=== PATIENT | male | born 1955 | race American Indian/Alaskan Native ===

== ENCOUNTER 2019-01-25 08:24 | Observation (INO) | payer SELFPAY ==
[2019-01-25] MEDS ORDERED: ASPIRIN 325 MG TAB PO ONE (08:37)
--- NOTE | 2019-01-25 09:33 | XRay Report ---
CHEST 1 VIEW INDICATION: Chest Pain. COMPARISON: None FINDINGS: Support devices: None. Heart: Within normal limits. Lungs/Pleura: No acute air space or interstitial disease. Additional findings: None. IMPRESSION: Normal AP chest. Signer Name: Ryan Cee Jr, MD Signed: 01/25/2019 9:29 AM Workstation Name: [id number]
[2019-01-25 09:42] LABS: Basophils % (Auto) 0.6 % (0.0-1.8); Eosinophils # (Auto) 0.1 K/mm3 (0.0-0.4); Hematocrit 44.3 % (35.5-45.6); Lymphocytes # (Auto) 2.2 K/mm3 (1.2-5.4); Lymphocytes % (Auto) 45.3 % (13.4-35.0); Mean Corpuscular HGB Conc 34 % (32-34); Mean Corpuscular Volume 88 fl (84-94); Monocytes # (Auto) 0.6 K/mm3 (0.0-0.8); Monocytes % (Auto) 11.7 % (0.0-7.3); Platelet Count 245 K/mm3 (140-440); Red Blood Count 5.05 M/mm3 (3.65-5.03); Red Cell Distribution Width 14.4 % (13.2-15.2)
[2019-01-25 10:03] LABS: BUN/Creatinine Ratio 7; Blood Urea Nitrogen 10 mg/dL (9-20); Calcium 9.3 mg/dL (8.4-10.2); Hemolysis Index 60
[2019-01-25] MEDS ORDERED: ALBUTEROL 2.5 MG/3 ML NEBU IH ONE (10:47)
[2019-01-25] MEDS ORDERED: IPRATROPIUM 0.02% NEBU 2.5 ML IH ONE (10:47)
[2019-01-25] MEDS ORDERED: predniSONE 20 MG TAB PO ONE (10:48)
--- NOTE | 2019-01-25 11:02 | Emergency Department Report ---
HPI - General Chief Complaint: Dyspnea/Respdistress Time Seen by Provider: 01/25/19 10:37 - HPI HPI: 63-year-old male presents to the emergency department with complaint of a few days of some generalized chest tightness and shortness of br eath. The symptoms worsen with exertion. The patient has a past medical history of hypertension, coronary artery disease with cardiac stents and a history of previous PE. The patient says he was found to have DVT and PE about 6 months ago at the [facility]. He was on Xarelto but stopped the blood thinning medication a few months ago because "I was feeling better." He has a petrol tanker driver. Denies any current lower extremity swelling. He does not have a primary care physician. He is an occasional marijuana smoker but denies any tobacco use. No recent travel or sick contacts at home. ED Past Medical Hx - Past Medical History Previous Medical History?: Yes Hx Hypertension: Yes - Surgical History Past Surgical History?: Yes Additional Surgical History: stent placement - Social History Smoking Status: Never Smoker Substance Use Type: None ED Review of Systems ROS: Stated complaint: ARPITA/TIGHTNESS IN CHEST Other details as noted in HPI Comment: All other systems reviewed and negative Constitutional: denies: chills, fever Eyes: denies: eye pain, vision change ENT: denies: ear pain, throat pain Respiratory: see HPI, shortness of breath, SOB with exertion, wheezing Cardiovascular: chest pain (tightness). denies: edema Gastrointestinal: denies: abdominal pain, vomiting Genitourinary: denies: dysuria, discharge Musculoskeletal: denies: back pain, arthralgia Skin: denies: rash, lesions Neurological: denies: headache, weakness Physical Exam - Physical Exam Vital Signs: Vital Signs 01/25/19 08:35 Temperature 98.0 F Pulse Rate 81 Respiratory 18 Rate Blood Pressure 148/101 O2 Sat by Pulse 98 Oximetry Physical Exam: GENERAL: The patient is well-developed well-nourished. HENT: Normocephalic. Atraumatic. Patient has moist mucous membranes. EYES: Extraocular motions are intact. Pupils equal reactive to light bilaterally. NECK: Supple. Trachea is midline. CHEST/LUNGS: Mild expiratory wheezing. No tachypnea or accessory muscle use. There is no respiratory distress noted. HEART/CARDIOVASCULAR: Regular. There is no tachycardia. There is no murmur. ABDOMEN: Abdomen is soft, nontender. Patient has normal bowel sounds. Obese habitus. SKIN: Skin is warm and dry. NEURO: The patient is awake, alert, and oriented. The patient is cooperative. The patient has no focal neurologic deficits. Normal speech. MUSCULOSKELETAL: There is no tenderness or deformity. There is no evidence of acute injury. ED Course Vital Signs 01/25/19 08:35 Temperature 98.0 F Pulse Rate 81 Respiratory 18 Rate Blood Pressure 148/101 O2 Sat by Pulse 98 Oximetry ED Medical Decision Making - Lab Data Result diagrams: 01/25/19 09:10 01/25/19 09:10 - EKG Data -: EKG Interpreted by Me EKG shows normal: sinus rhythm, axis, intervals, QRS complexes (q waves to the septal leads) Rate: normal - EKG Data When compared to previous EKG there are: previous EKG unavailable Interpretation: other (sinus, q waves to the septal leads, no STEMI) - Radiology Data Radiology results: report reviewed, image reviewed interpreted by me: Chest x-ray does not show any acute process. There are no pleural effusions, obvious pneumonia and there is no pneumothorax. CTA CHEST WITH CONTRAST INDICATION : SOB, elevated dimer, hx of PE. TECHNIQUE: Axial imaging performed through the chest, with contrast bolus timing set to maximize opacification of the pulmonary arteries. Sagittal and coronal reformatted images. 3-plane MIP reformatted images were obtained. All CT scans at this location are performed using CT dose reduction for ALARA by means of automated exposure control. 100 mL of intravenous contrast administered. COMPARISON: None FINDINGS: Bolus: Contrast bolus timing is adequate. PTE: A linear nonocclusive filling defect is identified in a second order pulmonary artery leading to the posterior right upper lobe which is best demonstrated on image 37, series 2. A small nonocclusive filling defect is also identified and a third or fourth order pulmonary artery leading to the posterior right lower lobe. No obvious left pulmonary emboli. Mediastinum: Heart and great vessels appear normal. No pathologic mediastinal adenopathy. Lungs: Minor subpleural atelectatic changes are noted in the posterior right lower lobe. Otherwise, the lungs are well-aerated. No pleural effusion or pneumothorax. Bones: Degenerative changes in the spine with nothing acute. Upper abdomen: Limited imaging of the upper abdomen shows nothing acute. IMPRESSION: Positive for small nonocclusive pulmonary emboli to the right lung as described. - Medical Decision Making Patient presents to the emergency department with a few days of some shortness of breath and some wheezing and his symptoms worsen with any type of exertion. He also has a history of DVT and PE with some medication noncompliance as he stopped his blood thinner on his own. On examination he has some mild expiratory wheezing but no signs of any respiratory distress. He was given a breathing treatment and steroids. He had a slightly elevated and equivocal d- dimer so a CT angiography of the chest was completed that showed a few small right-sided nonocclusive pulmonary emboli. Vital signs have been stable throughout his ED course thus far. Patient will be admitted to the hospital for further evaluation and treatment. - Differential Diagnosis asthma, pneumonia, bronchitis, PE, CHF Critical Care Time: No Critical care attestation.: If time is entered above; I have spent that time in minutes in the direct care of this critically ill patient, excluding procedure time. ED Disposition Clinical Impression: Bronchospasm Pulmonary emboli Qualifiers: Pulmonary embolism type: multiple subsegmental (without acute cor pulmonale) Qualified Code(s): I26.94 - Multiple subsegmental pulmonary emboli without acute cor pulmonale Hypertension Qualifiers: Hypertension type: essential hypertension Qualified Code(s): I10 - Essential (primary) hypertension Disposition: OP ADMIT IP TO THIS HOSP Is pt being admited?: Yes Condition: Fair Instructions: Hypertension (ED) Time of Disposition: 14:26
[2019-01-25] MEDS ORDERED: APIXABAN 5 MG TAB PO SCH (13:50)
--- NOTE | 2019-01-25 13:50 | Cat Scan Report ---
CTA CHEST WITH CONTRAST INDICATION : SOB, elevated dimer, hx of PE. TECHNIQUE: Axial imaging performed through the chest, with contrast bolus timing set to maximize opa cification of the pulmonary arteries. Sagittal and coronal reformatted images. 3-plane MIP reformatte d images were obtained. All CT scans at this location are performed using CT dose reduction for ALAR A by means of automated exposure control. 100 mL of intravenous contrast administered. COMPARISON: None FINDINGS: Bolus: Contrast bolus timing is adequate. PTE: A linear nonocclusive filling defect is identified in a second order pulmonary artery leading t o the posterior right upper lobe which is best demonstrated on image 37, series 2. A small nonocclusi ve filling defect is also identified and a third or fourth order pulmonary artery leading to the post erior right lower lobe. No obvious left pulmonary emboli. Mediastinum: Heart and great vessels appear normal. No pathologic mediastinal adenopathy. Lungs: Minor subpleural atelectatic changes are noted in the posterior right lower lobe. Otherwise, the lungs are well-aerated. No pleural effusion or pneumothorax. Bones: Degenerative changes in the spine with nothing acute. Upper abdomen: Limited imaging of the upper abdomen shows nothing acute. IMPRESSION: Positive for small nonocclusive pulmonary emboli to the right lung as described. These findings were discussed with Dr. Vo in the emergency department at 1344 hours EST. Signer Name: Ryan Cee Jr, MD Signed: 01/25/2019 1:45 PM Workstation Name: [id number]
--- NOTE | 2019-01-25 15:57 | Event Note ---
63 YO Male presents to ED for evaluation. Pt see and evaluated in ED and found to have small distal Pulmonary emboli, and is noncompliant with therapeutic anticoagulation. Pt treated with therapeutic anticoagulation. Pt counseled regarding medication noncompliance. Pt medically optimized and back to usual state of health. Pt discharged home and instructed to f/u pcp 3-5 days, and card iology 3-5 days for f/u care. Physical Exam: GENERAL: The patient is well-developed well-nourished. HENT: Normocephalic. Atraumatic. Patient has moist mucous membranes. EYES: Extraocular motions are intact. Pupils equal reactive to light bilaterally. NECK: Supple. Trachea is midline. CHEST/LUNGS: CTA Bilaterally. No tachypnea or accessory muscle use. There is no respiratory distress noted. HEART/CARDIOVASCULAR: Regular Rate/Rhythm, . There is no tachycardia. There is no murmur. ABDOMEN: Abdomen is soft, nontender. Patient has normal bowel sounds. Obese habitus. SKIN: Skin is warm and dry. NEURO: The patient is awake, alert, and oriented. The patient is cooperative. The patient has no focal neurologic deficits. Normal speech. MUSCULOSKELETAL: There is no tenderness or deformity. There is no evidence of acute injury. ED Course
[2019-01-25 18:21] VITALS: BP 135/76
== END 2019-01-25 18:21 | disposition home or self-care (01) ==
LOC: ED 08:24 → 3A 13:55
PROVIDERS: ADMIT Internal Medicine; ATTEND Internal Medicine
DX: J98.01 Acute bronchospasm (principal); I26.94 Multiple subsegmental thrombotic pulmonary emboli without acute cor pulmonale; I10 Essential (primary) hypertension; Z95.5 Presence of coronary angioplasty implant and graft; Z79.899 Other long term (current) drug therapy
CPT/HCPCS: 36415; 71045; 71275; 80048; 83880; 84484; 85025; 85379; 93005; 93010; 99284; G0378; J7512; Q9967

== ENCOUNTER 2019-03-16 07:59 | Emergency (ER) | payer SELFPAY | END 2019-03-16 10:08 | disposition home or self-care (01) | LOC: ED 07:59 ==

== ENCOUNTER 2020-12-20 14:26 | Emergency (ER) | payer BC ==
[2020-12-20 15:07] VITALS: BP 116/75
[2020-12-20] MEDS ORDERED: dexAMETHasone 4 MG/ML VIAL IM STA (16:35)
[2020-12-20] MEDS ORDERED: KETOROLAC 60 MG/2 ML INJ IM ONE (16:35)
--- NOTE | 2020-12-20 16:39 | Emergency Department Report ---
ED General Adult HPI - General Chief complaint: Extremity Problem,Nontraumatic Stated complaint: FEET PAINS Time Seen by Provider: 12/20/20 15:19 Source: patient Mode of arrival: Ambulatory Limitations: No Limitations - History of Present Illness Initial comments: 65-year-old -[place] male patient presents with complaints of bilateral heel and foot pain x2 months. He denies any injuries to his foot and admits to intermittent numbness and tingling. Patient states he has been evaluated in multiple ERs for this pain and has not followed up with a PCP. He states Tylenol and ibuprofen are not helping. Patient has history of DVT and PE and has not been on his Xarelto for the past 30 days. He reports he has a follow-up appointment with his primary care doctor 1 week from today. Patient also denies any skin changes, redness, difficulty moving his feet, or swelling to the feet. No history of cancer progression. Patient states after standing for long periods of time when he gets up to take his first step, there is severe shooting pain throughout the bottom of his foot. - Related Data Previous Rx's Medication Instructions Recorded Last Taken Type Apixaban [Eliquis starter pack] 5 mg PO DAILY #74 tab.ds.pk 01/25/19 Unknown Rx hydroCHLOROthiazide [HCTZ] 25 mg PO QDAY #30 tablet 01/25/19 Unknown Rx lisinopriL [Zestril TAB] 40 mg PO QDAY #30 tablet 01/25/19 Unknown Rx Apixaban [Eliquis] 5 mg PO BID 30 Days #60 tablet 03/16/19 Unknown Rx Acetaminophen/Codeine [Tylenol 1 tab PO Q8H PRN #8 tab 12/20/20 Unknown Rx /Codeine # 3 tab] Diclofenac 1% [Diclofenac 1% 1 gm TP QID PRN #1 gel..gram. 12/20/20 Unknown Rx topical gel] Naproxen 500 mg PO BID PRN #20 tablet 12/20/20 Unknown Rx Allergies Allergy/AdvReac Type Severity Reaction Status Date / Time No Known Allergies Allergy Verified 12/20/20 15:07 ED Review of Systems ROS: Stated complaint: FEET PAINS Other details as noted in HPI Constitutional: denies: chills, diaphoresis, fever, malaise, weakness Musculoskeletal: arthralgia. denies: joint swelling Skin: denies: rash, lesions, change in color, pruritus ED Past Medical Hx - Past Medical History Hx Hypertension: Yes Hx Deep Vein Thrombosis: Yes Hx Pulmonary Embolism: Yes - Surgical History Additional Surgical History: stent placement - Social History Smoking Status: Current Some Day Smoker Substance Use Type: None - Medications Home Medications: Home Medications Medication Instructions Recorded Confirmed Last Taken Type Apixaban [Eliquis starter pack] 5 mg PO DAILY #74 tab.ds.pk 01/25/19 Unknown Rx hydroCHLOROthiazide [HCTZ] 25 mg PO QDAY #30 tablet 01/25/19 Unknown Rx lisinopriL [Zestril TAB] 40 mg PO QDAY #30 tablet 01/25/19 Unknown Rx Apixaban [Eliquis] 5 mg PO BID 30 Days #60 tablet 03/16/19 Unknown Rx Acetaminophen/Codeine [Tylenol 1 tab PO Q8H PRN #8 tab 12/20/20 Unknown Rx /Codeine # 3 tab] Diclofenac 1% [Diclofenac 1% 1 gm TP QID PRN #1 gel..gram. 12/20/20 Unknown Rx topical gel] Naproxen 500 mg PO BID PRN #20 tablet 12/20/20 Unknown Rx ED Physical Exam - General Limitations: No Limitations General appearance: alert, in no apparent distress, obese - Head Head exam: Present: atraumatic, normocephalic - Eye Eye exam: Present: normal appearance - Respiratory Respiratory exam: Absent: respiratory distress - Cardiovascular Cardiovascular Exam: Present: regular rate - Extremities Exam Extremities exam: Present: full ROM, other (Tenderness to palpation noted bilaterally over the plantar surface heel and plantar fascia without skin changes, swelling, or redness noted; patient has normal perfusion and range of motion of the ankle, foot and toes) - Neurological Exam Neurological exam: Present: alert, oriented X3 - Psychiatric Psychiatric exam: Present: normal affect, normal mood - Skin Skin exam: Present: warm, dry, intact, normal color. Absent: rash ED Course Vital Signs 12/20/20 15:07 Temperature 98.5 F Pulse Rate 91 H Respiratory 20 Rate Blood Pressure 116/75 [Left] O2 Sat by Pulse 95 Oximetry ED Medical Decision Making - Medical Decision Making Given history and physical exam, suspect patient's pain is due to plantars fasciitis. Discussed conservative measures including icing, foot massages, and night splinting with patient. Patient to follow-up as scheduled with his doctor on December 27, 2020. Prescription for diclofenac gel and naproxen given. Discussed signs and symptoms that should prompt immediate return to emergency department in detail patient verbalizes understanding peer Critical care attestation.: If time is entered above; I have spent that time in minutes in the direct care of this critically ill patient, excluding procedure time. ED Disposition Clinical Impression: Bilateral foot pain Disposition: HOME / SELF CARE / HOMELESS Is pt being admited?: No Condition: Stable Instructions: Heel Pad Atrophy, Plantar Fasciitis Additional Instructions: Please follow-up with your primary care doctor as scheduled December 27, 2020 Prescriptions: Diclofenac 1% [Diclofenac 1% topical gel] 1 gm TP QID PRN #1 gel..gram. PRN Reason: pain Naproxen 500 mg PO BID PRN #20 tablet PRN Reason: pain Acetaminophen/Codeine [Tylenol /Codeine # 3 tab] 1 tab PO Q8H PRN #8 tab PRN Reason: Pain , Severe (7-10) Forms: Work/School Release Form(ED)
== END 2020-12-20 18:26 | disposition home or self-care (01) ==
LOC: ED 14:26
DX: M79.672 Pain in left foot (principal); M79.671 Pain in right foot; I10 Essential (primary) hypertension; I26.99 Other pulmonary embolism without acute cor pulmonale; I82.409 Acute embolism and thrombosis of unspecified deep veins of unspecified lower extremity; Z98.890 Other specified postprocedural states; F17.200 Nicotine dependence, unspecified, uncomplicated
CPT/HCPCS: 96372; 99282; J1100; J1885

== ENCOUNTER 2021-01-18 17:09 | Emergency (ER) | payer BC ==
--- NOTE | 2021-01-18 17:52 | Emergency Department Report ---
HPI - General Chief Complaint: Extremity Problem,Nontraumatic Time Seen by Provider: 01/18/21 17:33 - HPI HPI: Room 34 Patient is 65-year-old male present with chief complaint of bilateral heel pain. Patient states for the past 2.5 months he has had intermittent pain in the posterior regions of both of his feet. The patient saw his primary physician who ordered an bilateral foot x-rays and bilateral lower extremity Dopplers as an outpatient. The patient states he went yesterday to have his studies performed but only the foot x-rays were performed. The patient spoke with his primary physician today and she instructed him to come to the emergency department immediately to have Dopplers performed. The patient states he was diagnosed with borderline diabetes as his hemoglobin A1c was approximately 6. Patient has a history of previous DVTs in the past states he ran out of his Xarelto approximately 2 months ago ED Past Medical Hx - Past Medical History Previous Medical History?: Yes Hx Hypertension: Yes Hx Deep Vein Thrombosis: Yes Hx Pulmonary Embolism: Yes Additional medical history: CAD - Surgical History Past Surgical History?: Yes Additional Surgical History: Cardiac stent placement - Family History Family history: no significant - Social History Smoking Status: Former Smoker (None x5-year) Substance Use Type: None (Denies illicit drug use) - Medications Home Medications: Home Medications Medication Instructions Recorded Confirmed Last Taken Type Apixaban [Eliquis starter pack] 5 mg PO DAILY #74 tab.ds.pk 01/25/19 Unknown Rx hydroCHLOROthiazide [HCTZ] 25 mg PO QDAY #30 tablet 01/25/19 Unknown Rx lisinopriL [Zestril TAB] 40 mg PO QDAY #30 tablet 01/25/19 Unknown Rx Apixaban [Eliquis] 5 mg PO BID 30 Days #60 tablet 03/16/19 Unknown Rx Acetaminophen/Codeine [Tylenol 1 tab PO Q8H PRN #8 tab 12/20/20 Unknown Rx /Codeine # 3 tab] Diclofenac 1% [Diclofenac 1% 1 gm TP QID PRN #1 gel..gram. 12/20/20 Unknown Rx topical gel] Naproxen 500 mg PO BID PRN #20 tablet 12/20/20 Unknown Rx Ibuprofen [Motrin 800 MG tab] 800 mg PO Q8HR PRN #20 tablet 01/18/21 Unknown Rx traMADoL [Ultram] 50 mg PO Q6HR PRN #20 tablet 01/18/21 Unknown Rx ED Review of Systems ROS: Stated complaint: BILATERIAL FEET Other details as noted in HPI Constitutional: no symptoms reported Eyes: denies: eye pain ENT: denies: throat pain Respiratory: no symptoms reported Cardiovascular: denies: chest pain Endocrine: no symptoms reported Gastrointestinal: denies: abdominal pain Genitourinary: denies: dysuria Musculoskeletal: myalgia Neurological: denies: headache Physical Exam - Physical Exam Vital Signs: Vital Signs 01/18/21 17:29 Pulse Rate 77 Respiratory 16 Rate Blood Pressure 154/102 [Left] O2 Sat by Pulse 96 Oximetry Physical Exam: GENERAL: The patient is well-developed well-nourished male lying on stretcher n ot appearing to be in acute distress. [] HEENT: Normocephalic. Atraumatic. Extraocular motions are intact. Patient has moist mucous membranes. NECK: Supple. Trachea midline CHEST/LUNGS: Clear to auscultation. There is no respiratory distress noted. HEART/CARDIOVASCULAR: Regular. There is no tachycardia. There is no gallop rub or murmur. ABDOMEN: Abdomen is soft, nontender. Patient has normal bowel sounds. There is no abdominal distention. SKIN: There is no rash. There is no edema. There is no diaphoresis. NEURO: The patient is awake, alert, and oriented. The patient is cooperative. The patient has no focal neurologic deficits. The patient has normal speech. GCS 15 MUSCULOSKELETAL: There is no calf tenderness bilaterally. There is tenderness to palpation of the heels bilaterally. There is no evidence of acute injury. ED Course Vital Signs 01/18/21 17:29 Pulse Rate 77 Respiratory 16 Rate Blood Pressure 154/102 [Left] O2 Sat by Pulse 96 Oximetry ED Medical Decision Making - Radiology Data Radiology results: report reviewed (Bilateral lower extremity Dopplers), image reviewed (Bilateral lower extremity Dopplers) [facility] [address] [place] [address] Vascular Lab Report Signed Patient: VIRGILIO HWANG MR#: [id number] : 1955 Acct:[id number] Age/Sex: 65 / M ADM Date: 01/18/21 Loc: ED Attending Dr: Ordering Physician: TACO JONES MD Date of Service: 01/18/21 Procedure(s): VL venous duplex LE BILAT Accession Number(s): [id number] cc: TACO JOENS MD DUPLEX DOPPLER LOWER EXTREMITY VEINS, BILATERAL INDICATION / CLINICAL INFORMATION: Pain. TECHNIQUE: Duplex doppler imaging was performed through the veins of both lower extremities using venous compression and other maneuvers. COMPARISON: None available. FINDINGS: RIGHT COMMON FEMORAL VEIN: Negative. RIGHT FEMORAL VEIN: Negative. RIGHT POPLITEAL VEIN: Negative. RIGHT CALF VEINS: Negative. LEFT COMMON FEMORAL VEIN: Negative. LEFT FEMORAL VEIN: Negative. LEFT POPLITEAL VEIN: Negative. LEFT CALF VEINS: Negative. ADDITIONAL FINDINGS: None. IMPRESSION: 1. No sonographic evidence for DVT in either lower extremity. Signer Name: David Jean DO Signed: 01/18/2021 7:30 PM Workstation Name: [id number] Transcribed By: FERNANDO Dictated By: DAVID JEAN DO Electronically Authenticated By: DAVID JEAN DO Signed Date/Time: 01/18/211929 DD/ 29 TD/TT: Print Cancel - Differential Diagnosis Heel spurs, plantar fasciitis, neuropathy, DVTs Critical care attestation.: If time is entered above; I have spent that time in minutes in the direct care of this critically ill patient, excluding procedure time. ED Disposition Clinical Impression: Bilateral foot pain Disposition: 01 HOME / SELF CARE / HOMELESS Is pt being admited?: No Does the pt Need Aspirin: No Condition: Stable Instructions: Foot Pain, Diabetic Neuropathy Additional Instructions: Return to the emergency department should you develop worsening symptoms, in ability to tolerate food or liquids, high fever or any other concerns Prescriptions: Ibuprofen [Motrin 800 MG tab] 800 mg PO Q8HR PRN #20 tablet PRN Reason: Pain, Moderate (4-6) traMADoL [Ultram] 50 mg PO Q6HR PRN #20 tablet PRN Reason: Pain Referrals: PRIMARY CARE, [Primary Care Provider] - 3-5 Days Time of Disposition: 20:19
--- NOTE | 2021-01-18 19:35 | Vascular Lab Report ---
DUPLEX DOPPLER LOWER EXTREMITY VEINS, BILATERAL INDICATION / CLINICAL INFORMATION: Pain. TECHNIQUE: Duplex doppler imaging was performed through the veins of both lower extremities using tamika ous compression and other maneuvers. COMPARISON: None available. FINDINGS: RIGHT COMMON FEMORAL VEIN: Negative. RIGHT FEMORAL VEIN: Negative. RIGHT POPLITEAL VEIN: Negative. RIGHT CALF VEINS: Negative. LEFT COMMON FEMORAL VEIN: Negative. LEFT FEMORAL VEIN: Negative. LEFT POPLITEAL VEIN: Negative. LEFT CALF VEINS: Negative. ADDITIONAL FINDINGS: None. IMPRESSION: 1. No sonographic evidence for DVT in either lower extremity. Signer Name: David Jean DO Signed: 01/18/2021 7:30 PM Workstation Name: [id number]
[2021-01-18 19:50] VITALS: BP 139/85
== END 2021-01-18 20:49 | disposition home or self-care (01) ==
LOC: ED 17:09
DX: M79.672 Pain in left foot (principal); M79.671 Pain in right foot; I10 Essential (primary) hypertension; I26.99 Other pulmonary embolism without acute cor pulmonale; I82.409 Acute embolism and thrombosis of unspecified deep veins of unspecified lower extremity; I25.10 Atherosclerotic heart disease of native coronary artery without angina pectoris; Z98.890 Other specified postprocedural states; Z87.891 Personal history of nicotine dependence
CPT/HCPCS: 93970; 99283

== ENCOUNTER 2021-05-02 08:55 | Emergency (ER) | payer BC, OTHER ==
[2021-05-02] MEDS ORDERED: SODIUM CHLORIDE 0.9% 1000 ML 1,000 ML IV ONE (10:11)
[2021-05-02] MEDS ORDERED: KETOROLAC 30 MG/1 ML INJ IV ONE (10:11)
[2021-05-02 11:08] LABS: Basophils % (Auto) 0.6 % (0.0-1.8); Eosinophils % (Auto) 0.5 % (0.0-4.3); Lymphocytes # (Auto) 1.9 K/mm3 (1.2-5.4); Mean Corpuscular HGB Conc 30 % (32-34); Mean Corpuscular Volume 89 fl (84-94); Monocytes # (Auto) 0.6 K/mm3 (0.0-0.8); Monocytes % (Auto) 9.9 % (0.0-7.3); Platelet Count 294 K/mm3 (140-440); Red Blood Count 5.69 M/mm3 (3.65-5.03); Red Cell Distribution Width 13.8 % (13.2-15.2)
[2021-05-02 11:20] LABS: Hematocrit 50.7 % (35.5-45.6); Hemoglobin 15.3 gm/dl (11.8-15.2)
[2021-05-02 11:52] LABS: Alanine Aminotransferase TNR units/L (7-56); BUN/Creatinine Ratio TNR; Blood Urea Nitrogen TNR mg/dL (9-20); Calcium TNR mg/dL (8.4-10.2)
[2021-05-02 11:53] LABS: Albumin TNR g/dL (3.9-5); Hemolysis Index TNR
--- NOTE | 2021-05-02 13:36 | Cat Scan Report ---
CT ABDOMEN AND PELVIS WITHOUT CONTRAST INDICATION / CLINICAL INFORMATION: Bilateral flank abdominal pain. TECHNIQUE: Axial CT images were obtained through the abdomen and pelvis without IV contrast. All CT scans at [facility] location are performed using CT dose reduction for ALARA by means of automated exposure control. COMPARISON: None available. FINDINGS: LOWER CHEST: No significant abnormality. LIVER: No significant abnormality. GALLBLADDER: No significant abnormality. BILE DUCTS: No significant abnormality. PANCREAS: No significant abnormality. SPLEEN: No significant abnormality. ADRENALS: No significant abnormality. RIGHT KIDNEY and URETER: No significant abnormality. LEFT KIDNEY and URETER: 1.7 cm mildly complex cyst arising from the upper pole the left kidney.. STOMACH and SMALL BOWEL: No significant abnormality. COLON: No significant abnormality. APPENDIX: No significant abnormality. PERITONEUM: No free fluid. No free air. No fluid collection. LYMPH NODES: No significant adenopathy. AORTA and ARTERIES: No significant abnormality. IVC and VEINS: No significant abnormality. URINARY BLADDER: No significant abnormality. REPRODUCTIVE ORGANS: No significant abnormality. ADDITIONAL FINDINGS: Small fat-containing periumbilical hernia.. SKELETAL SYSTEM: No significant abnormality. IMPRESSION: No obstructive ureteral calculus. Small fat-containing periumbilical hernia. Signer Name: Jh Mae MD Signed: 05/02/2021 1:32 PM Workstation Name: [id number]
[2021-05-02] MEDS ORDERED: HYDROcodone/ACETAMINOPHEN 5-325 MG TAB PO ONE (15:14)
--- NOTE | 2021-05-02 15:36 | Emergency Department Report ---
ED Abdominal Pain HPI - General Chief Complaint: Back Pain/Injury Stated Complaint: KIDNEY PAIN Time Seen by Provider: 05/02/21 10:10 Source: patient Mode of arrival: Ambulatory Limitations: No Limitations - History of Present Illness Initial Comments: Patient is a 65-year-old obese male that comes to the emergency room complaining of bilateral flank pain. Notes he reports to his morbidly obese sides. He states that the pain is worse with movement. He denies any history of kidney stones dysuria or hematuria. He does report having a history of PE for which he is on Eliquis. Patient is ambulatory, nontoxic [id number] on exam in triage. Patient denies any chest pain or shortness of breath. Patient denies any nausea vomiting or diarrhea. Had a normal BM yesterday. MD Complaint: abdominal pain -: Gradual, days(s) Location: bilateral flank Radiation: none Severity scale (0 -10): 10 Quality: cramping Consistency: intermittent Improves With: nothing Worsens With: nothing Associated Symptoms: denies other symptoms - Related Data Previous Rx's Medication Instructions Recorded Last Taken Type Apixaban [Eliquis starter pack] 5 mg PO DAILY #74 tab.ds.pk 01/25/19 Unknown Rx hydroCHLOROthiazide [HCTZ] 25 mg PO QDAY #30 tablet 01/25/19 Unknown Rx lisinopriL [Zestril TAB] 40 mg PO QDAY #30 tablet 01/25/19 Unknown Rx Apixaban [Eliquis] 5 mg PO BID 30 Days #60 tablet 03/16/19 Unknown Rx Diclofenac 1% [Diclofenac 1% 1 gm TP QID PRN #1 gel..gram. 12/20/20 Unknown Rx topical gel] Allergies Allergy/AdvReac Type Severity Reaction Status Date / Time No Known Allergies Allergy Verified 05/02/21 09:59 ED Review of Systems ROS: Stated complaint: KIDNEY PAIN Other details as noted in HPI Comment: All other systems reviewed and negative ED Past Medical Hx - Past Medical History Previous Medical History?: Yes Hx Hypertension: Yes Hx Deep Vein Thrombosis: Yes Hx Pulmonary Embolism: Yes Additional medical history: CAD - Surgical History Past Surgical History?: Yes Additional Surgical History: Cardiac stent placement - Family History Family history: no significant - Social History Smoking Status: Former Smoker (None x5-year) Substance Use Type: None (Denies illicit drug use) - Medications Home Medications: Home Medications Medication Instructions Recorded Confirmed Last Taken Type Apixaban [Eliquis starter pack] 5 mg PO DAILY #74 tab.ds.pk 01/25/19 Unknown Rx hydroCHLOROthiazide [HCTZ] 25 mg PO QDAY #30 tablet 01/25/19 Unknown Rx lisinopriL [Zestril TAB] 40 mg PO QDAY #30 tablet 01/25/19 Unknown Rx Apixaban [Eliquis] 5 mg PO BID 30 Days #60 tablet 03/16/19 Unknown Rx Diclofenac 1% [Diclofenac 1% 1 gm TP QID PRN #1 gel..gram. 12/20/20 Unknown Rx topical gel] ED Physical Exam - General Limitations: No Limitations General appearance: alert, in no apparent distress - Head Head exam: Present: atraumatic, normocephalic - Eye Eye exam: Present: normal appearance - ENT ENT exam: Present: mucous membranes moist - Neck Neck exam: Present: normal inspection - Respiratory Respiratory exam: Present: normal lung sounds bilaterally. Absent: respiratory distress - Cardiovascular Cardiovascular Exam: Present: regular rate, normal rhythm. Absent: systolic murmur, diastolic murmur, rubs, gallop - GI/Abdominal GI/Abdominal exam: Present: soft, normal bowel sounds - Rectal Rectal exam: Present: deferred - Extremities Exam Extremities exam: Present: normal inspection - Back Exam Back exam: Present: normal inspection - Neurological Exam Neurological exam: Present: alert, oriented X3 - Psychiatric Psychiatric exam: Present: normal affect, normal mood - Skin Skin exam: Present: warm, dry, intact, normal color. Absent: rash ED Course Vital Signs 05/02/21 05/02/21 09:54 16:19 Temperature 98.3 F 98.0 F Pulse Rate 87 88 Respiratory 16 18 Rate Blood Pressure 111/76 Blood Pressure 148/89 [Right] O2 Sat by Pulse 94 99 Oximetry ED Medical Decision Making - Lab Data Result diagrams: 05/02/21 10:21 05/02/21 15:15 - Radiology Data Radiology results: report reviewed, image reviewed see report - Medical Decision Making Labs 05/02/21 05/02/21 05/02/21 10:21 10:21 15:15 WBC 5.6 RBC 5.69 H Hgb 15.3 H Hct 50.7 H MCV 89 MCH 27 L MCHC 30 L RDW 13.8 Plt Count 294 Lymph % (Auto) 35.0 [place] % (Auto) 9.9 H Eos % (Auto) 0.5 Baso % (Auto) 0.6 Lymph # (Auto) 1.9 [place] # (Auto) 0.6 Eos # (Auto) 0.0 Baso # (Auto) 0.0 Seg Neutrophils % 54.0 Seg Neutrophils # 3.0 Sodium TNR 136 L Potassium TNR 3.9 Chloride TNR 101.4 Carbon Dioxide TNR 24 Anion Gap TNR 15 BUN TNR 21 H Creatinine TNR 1.4 H Estimated GFR TNR > 60 BUN/Creatinine Ratio TNR 15 Glucose TNR 125 H Calcium TNR 8.4 Total Bilirubin TNR 0.20 AST TNR 12 ALT TNR 16 Alkaline Phosphatase TNR 76 Total Protein TNR 6.5 Albumin TNR 4.1 Albumin/Globulin Ratio TNR 1.7 Lipase TNR Vital Signs 05/02/21 09:54 Temperature 98.3 F Pulse Rate 87 Respiratory 16 Rate Blood Pressure 111/76 O2 Sat by Pulse [address] noted. Patient is been asking for narcotics since he has been here. There is clearly a pattern of drug-seeking behavior. Patient's creatinine is baseline 1.4. Patient had given a urine specimen but the nurses have lasted and he refused to give another one. Therefore patient is being discharged to home with discharge plan of care including diet, activity, medication and follow-up. He verbalizes understanding of discharge plan of care. - Differential Diagnosis ro k stone Critical care attestation.: If time is entered above; I have spent that time in minutes in the direct care of this critically ill patient, excluding procedure time. ED Disposition Clinical Impression: Flank pain, Morbid obesity Disposition: HOME / SELF CARE / HOMELESS Is pt being admited?: No Does the pt Need Aspirin: No Condition: Stable Instructions: Flank Pain, Adult, [id number] Additional Instructions: continue home meds CT scan and WBC normal today follow up with pcp in AM for recheck referral below Referrals: PRIMARY CAREMD [Primary Care Provider] - 3-5 Days KRISSY ESTEVEZ MD [Staff Physician] - 3-5 Days Time of Disposition: 15:36
[2021-05-02 15:49] LABS: Alanine Aminotransferase 16 units/L (7-56); Albumin 4.1 g/dL (3.9-5); BUN/Creatinine Ratio 15; Blood Urea Nitrogen 21 mg/dL (9-20); Calcium 8.4 mg/dL (8.4-10.2); Hemolysis Index 7
[2021-05-02 16:21] VITALS: BP 148/89
== END 2021-05-02 16:19 | disposition home or self-care (01) ==
LOC: ED 08:55
DX: R10.9 Unspecified abdominal pain (principal); E66.01 Morbid (severe) obesity due to excess calories; I10 Essential (primary) hypertension; Z87.891 Personal history of nicotine dependence
CPT/HCPCS: 36415; 74176; 80053; 85025; 96361; 96374; 99284; J1885; J7030; Q0162